=== PATIENT | female | born 1945 | race Two or more races ===

== ENCOUNTER 2018-08-09 15:49 | Inpatient (IN) | payer MEDICAID, MEDICARE ==
[~2018-08-09] VITALS: Ht 149.9 cm; Wt 54.0 kg
[2018-08-09] MEDS ORDERED: KETOROLAC 30MG/ML VIAL IV STA (16:26)
[2018-08-09] MEDS ORDERED: ONDANSETRON HCL 4MG/2ML INJ IV STA (16:26)
[2018-08-09] MEDS ORDERED: SODIUM CHLORIDE 0.9% 1,000 ML IV ONE (16:26)
[2018-08-09] MEDS ORDERED: ASPIRIN 81MG TABLET PO ONE (16:30)
[2018-08-09 17:56] LABS: BASOPHILS % 0.8 % (0.0-2.0); EOSINOPHILS % 1.1 % (0.0-5.0); HEMATOCRIT. 37.5 % (36.0-48.0); HEMOGLOBIN. 12.3 g/dL (12.0-16.0); MEAN CORPUSCULAR HEMOGLOBIN 31.8 pg (28.0-32.0); MEAN CORPUSCULAR VOLUME 97.2 fL (81.0-99.0); MONOCYTES % 12.7 % (2.0-8.0); NEUTROPHILS % 53.4 % (40.0-76.0); PLATELET 152 x1000/uL (130-400); RED BLOOD CELL COUNT 3.86 mill/uL (4.2-5.4); RED CELL DISTRIBUTION WIDTH 14.3 % (11.6-14.6)
[2018-08-09 17:58] LABS: CHLORIDE 106 mEq/L (98-107)
[2018-08-09 18:00] LABS: INR 1.1; PROTHROMBIN TIME 10.9 sec (9.1-11.1)
[2018-08-09 18:40] LABS: CLARITY URINE CLOUDY (CLEAR); COLOR URINE YELLOW (YELLOW); KETONES URINE 1+ (NEGATIVE); LEUKOCYTE ESTERASE URINE 1+ (NEGATIVE); NITRITE URINE NEGATIVE (NEGATIVE); OCCULT BLOOD URINE NEGATIVE (NEGATIVE); PH URINE 6.5 (4.5-8.0); PROTEIN URINE TRACE (NEGATIVE); UROBILINOGEN URINE 0.2 E.U./dL (0.2-1.0)
[2018-08-09] MEDS ORDERED: CEFTRIAXONE 1 G PREMIX 50 ML IV ONE (18:45)
[2018-08-09] MEDS ORDERED: POTASSIUM CHLORIDE 20MEQ TABLET SR PO ONE (18:45)
[2018-08-09] MEDS ORDERED: MORPHINE SULFATE 2 MG/ML CPJ (NOT FOR IM USE) IV ONE (19:00)
[2018-08-09] MEDS ORDERED: IPRATROPIUM/ALBUTEROL 0.5-3(2.5)MG/3ML NEB INH PRN (19:15)
[2018-08-09] MEDS ORDERED: DOCUSATE SODIUM 100MG CAPSULE PO PRN (19:15)
[2018-08-09] MEDS ORDERED: ONDANSETRON HCL 4MG/2ML INJ IV PRN (19:15)
[2018-08-09] MEDS ORDERED: ACETAMINOPHEN 325MG TABLET PO PRN (19:15)
[2018-08-09] MEDS ORDERED: CLONIDINE 0.1MG TABLET PO PRN (19:15)
[2018-08-09] MEDS ORDERED: MAGNESIUM/ALUMINUM HYDROXIDE/SIMETHICONE 30ML UDC PO PRN (19:15)
[2018-08-09 21:30] VITALS: BP 168/93
[2018-08-09 22:00] VITALS: BP 138/68
[2018-08-09 22:32] VITALS: BP 168/93
[2018-08-10] VITALS: BP 123/77
[2018-08-10 00:14] LABS: CHLORIDE 108 mEq/L (98-107)
[2018-08-10 00:24] LABS: CREATINE KINASE 88 IU/L (26-192)
[2018-08-10 04:00] VITALS: BP 144/90
[2018-08-10] MEDS: HYDROCODONE/ACETAMINOPHEN 5/325MG TABLET PO PRN ×3 (06:09→21:00)
[2018-08-10 07:20] LABS: BASOPHILS % 1.4 % (0.0-2.0); EOSINOPHILS % 2.9 % (0.0-5.0); HEMATOCRIT. 35.2 % (36.0-48.0); HEMOGLOBIN. 11.4 g/dL (12.0-16.0); LYMPHOCYTES % 46.1 % (20.0-50.0); MEAN CORPUSCULAR HEMOGLOBIN 31.6 pg (28.0-32.0); MEAN CORPUSCULAR VOLUME 97.4 fL (81.0-99.0); MEAN PLATELET VOLUME 11.7 fl (7.4-10.4); MONOCYTES % 14.5 % (2.0-8.0); NEUTROPHILS % 35.1 % (40.0-76.0); PLATELET 140 x1000/uL (130-400); RED BLOOD CELL COUNT 3.62 mill/uL (4.2-5.4); RED CELL DISTRIBUTION WIDTH 14.3 % (11.6-14.6)
[2018-08-10 08:14] LABS: LDL CHOLESTEROL 38 mg/dL (5-100)
[2018-08-10 08:16] LABS: CREATINE KINASE 86 IU/L (26-192); HDL CHOLESTEROL 52 mg/dL (40-59)
[2018-08-10 08:19] LABS: CREATINE KINASE MB FRACTION < 1.0 ng/mL (0.5-3.6)
[2018-08-10] MEDS: ASPIRIN 81MG EC TABLET PO SCH (09:02)
[2018-08-10 12:00] VITALS: BP 152/91
[2018-08-10] MEDS ORDERED: NICOTINE 21MG PATCH TD SCH (15:00)
[2018-08-10 16:00] VITALS: BP 173/101
[2018-08-10] MEDS ORDERED: BISACODYL 10MG SUPP PR SCH (16:45)
[2018-08-10] MEDS: DOCUSATE SODIUM 250MG CAPSULE PO SCH (16:59)
[2018-08-10] MEDS: NICOTINE 14MG PATCH TD SCH (17:00)
[2018-08-10] MEDS: CEFTRIAXONE 1 G PREMIX 50 ML IV SCH (17:00)
[2018-08-10] MEDS ORDERED: HYDR-4005 PO (18:58)
[2018-08-10] MEDS ORDERED: NAPR-677 PO (18:58)
[2018-08-10] MEDS ORDERED: S350 PO (18:58)
[2018-08-10 20:00] VITALS: BP 144/77
[2018-08-10] MEDS ORDERED: SENNOSIDES/DOCUSATE SOD 8.6/50MG TABLET PO SCH (21:00)
[2018-08-10] MEDS: DILTIAZEM HCL 30MG TABLET PO SCH (21:00)
[2018-08-10] MEDS ORDERED: CEFTRIAXONE 1 G PREMIX 50 ML IV SCH (21:00)
[2018-08-10] MEDS: ENOXAPARIN 40MG/0.4ML SYR SUBCUT SCH ×2 (21:01)
[2018-08-11] VITALS (7 sets, daily range): BP systolic 135–159; BP diastolic 76–91
[2018-08-11] MEDS: DILTIAZEM HCL 30MG TABLET PO SCH (05:05)
[2018-08-11] MEDS: HYDROCODONE/ACETAMINOPHEN 5/325MG TABLET PO PRN ×2 (05:05→09:12)
[2018-08-11] MEDS: DOCUSATE SODIUM 250MG CAPSULE PO SCH (08:27)
[2018-08-11] MEDS: NICOTINE 14MG PATCH TD SCH (08:27)
[2018-08-11] MEDS: ASPIRIN 81MG EC TABLET PO SCH (08:27)
[2018-08-11 10:43] LABS: HEMATOCRIT. 36.2 % (36.0-48.0); HEMOGLOBIN. 11.7 g/dL (12.0-16.0); MEAN CORPUSCULAR HEMOGLOBIN 31.6 pg (28.0-32.0); MEAN CORPUSCULAR VOLUME 97.8 fL (81.0-99.0); MEAN PLATELET VOLUME 10.2 fl (7.4-10.4); PLATELET 134 x1000/uL (130-400); RED CELL DISTRIBUTION WIDTH 13.9 % (11.6-14.6)
[2018-08-11] MEDS ORDERED: DILTIAZEM HCL 120MG CAPSULE CD 24HR PO SCH (11:00)
[2018-08-11 11:12] LABS: CHLORIDE 106 mEq/L (98-107)
[2018-08-11] MEDS ORDERED: HYDROCODONE/APAP 7.5/325MG 1 TAB TABLET PO PRN (11:15)
[2018-08-11 11:18] LABS: PHOSPHORUS 3.2 mg/dL (2.5-4.9)
[2018-08-11] MEDS ORDERED: ASPI-1158 PO (14:17)
[2018-08-11] MEDS ORDERED: DILT120C88 PO (14:17)
[2018-08-11] MEDS ORDERED: NICO-681 TD (14:17)
[2018-08-11 16:41] LABS: PLATELET ESTIMATE NORMAL
[2018-08-11] MEDS: CEFTRIAXONE 1 G PREMIX 50 ML IV SCH (17:09)
== END 2018-08-11 17:50 | disposition home or self-care (01) | DRG 872 ==
LOC: EDBEDREQ 16:32 → EDBEDREQTM 16:32 → ER 16:39 → 7WST 18:50 → EDBEDREQ 18:54 → ENRESERV 19:56
PROVIDERS: ADMIT Internal Medicine; ATTEND Internal Medicine
DX: A41.9 Sepsis, unspecified organism (principal); C41.9 Malignant neoplasm of bone and articular cartilage, unspecified; I69.354 Hemiplegia and hemiparesis following cerebral infarction affecting left non-dominant side; N39.0 Urinary tract infection, site not specified; C78.01 Secondary malignant neoplasm of right lung; K59.00 Constipation, unspecified; D64.9 Anemia, unspecified; E87.6 Hypokalemia; J44.9 Chronic obstructive pulmonary disease, unspecified; E11.9 Type 2 diabetes mellitus without complications; F17.210 Nicotine dependence, cigarettes, uncomplicated; I10 Essential (primary) hypertension; R07.81 Pleurodynia; I25.10 Atherosclerotic heart disease of native coronary artery without angina pectoris; Z87.01 Personal history of pneumonia (recurrent); I25.2 Old myocardial infarction; Z79.84 Long term (current) use of oral hypoglycemic drugs; Z92.21 Personal history of antineoplastic chemotherapy
CPT/HCPCS: 36415; 71045; 71250; 74176; 80048; 80053; 80061; 81003; 82550; 82553; 83690; 83735; 84100; 84145; 84443; 84484; 85025; 85610; 87040; 93005; 93306; 93970; 96374; 96375; 97162; 99285; J0696; J1650; J1885; J2270; J2405; J7030

== ENCOUNTER 2021-10-29 13:34 | Inpatient (IN) | payer MEDICARE, MEDICAID ==
[~2021-10-29] VITALS: Ht 149.9 cm; Wt 65.5 kg
[~2021-10-29 13:34] MED LIST: ASPI-1406 PO; CARI350T28 PO; DILT120C88 PO; HYDR-4005 PO; NAPR-677 PO; NICO-681 TD
[2021-10-29] MEDS ORDERED: SODIUM CHLORIDE 0.9% 1000ML BAG (SEPSIS BOLUS) IV ONE (14:45)
[2021-10-29 14:55] LABS: HEMATOCRIT. 30.9 % (36.0-48.0); HEMOGLOBIN. 9.4 g/dL (12.0-16.0); MEAN CORPUSCULAR HEMOGLOBIN 24.5 pg (28.0-32.0); MEAN CORPUSCULAR VOLUME 80.3 fL (81.0-99.0); MEAN PLATELET VOLUME 9.2 fl (7.4-10.4); PLATELET 207 x1000/uL (130-400); RED BLOOD CELL COUNT 3.85 mill/uL (4.2-5.4); RED CELL DISTRIBUTION WIDTH 19.3 % (11.6-14.6)
[2021-10-29 15:04] LABS: CHLORIDE 113 mEq/L (98-107)
[2021-10-29 15:50] LABS: PLATELET ESTIMATE NORMAL
[2021-10-29 17:25] LABS: CLARITY URINE CLEAR (CLEAR); COLOR URINE YELLOW (YELLOW); KETONES URINE NEGATIVE (NEGATIVE); LEUKOCYTE ESTERASE URINE TRACE (NEGATIVE); NITRITE URINE NEGATIVE (NEGATIVE); OCCULT BLOOD URINE NEGATIVE (NEGATIVE); PROTEIN URINE TRACE (NEGATIVE)
[2021-10-29] MEDS ORDERED: HYDROCODONE/ACETAMINOPHEN 10/325MG TABLET PO ONE ×2 (17:30→21:45)
[2021-10-29] MEDS ORDERED: IOHEXOL-350 100 ML BOTTLE ONE (21:29)
[2021-10-29] MEDS ORDERED: NITROFURANTOIN 100MG M/M CAPSULE PO ONE (22:30)
[2021-10-29] MEDS ORDERED: ENOXAPARIN 60MG/0.6ML SYR SUBCUT ONE (23:15)
[2021-10-30] VITALS (20 sets, daily range): BP systolic 69–158; BP diastolic 41–96
[2021-10-30] MEDS ORDERED: IOHEXOL-350 100 ML BOTTLE ONE (00:56)
[2021-10-30] MEDS ORDERED: PREG75CA MT (03:52)
[2021-10-30] MEDS ORDERED: FOLI-43 MT (03:52)
[2021-10-30] MEDS ORDERED: INFLUENZA VACCINE 05/PF 0.5 ML SYRINGE IM ONE (04:30)
[2021-10-30] MEDS ORDERED: PNEUMOCOCCAL 23-VAL P-SAC VAC 0.5 ML IM ONE (04:30)
[2021-10-30] MEDS ORDERED: IPRATROPIUM/ALBUTEROL 0.5-3(2.5)MG/3ML NEB HHN PRN (05:15)
[2021-10-30] MEDS ORDERED: PIPERACILLIN/TAZOBACTAM 3.375 G in DEXTROSE 5% WATER 50 ML IV SCH (06:00)
[2021-10-30 06:27] LABS: CHLORIDE 114 mEq/L (98-107)
[2021-10-30] MEDS ORDERED: VANCOMYCIN 1250MG in DEXTROSE 5% WATER 250ML IV NR ×2 (06:30→07:00)
[2021-10-30 06:34] LABS: BASOPHILS % 0.7 % (0.0-2.0); EOSINOPHILS % 0.6 % (0.0-5.0); HEMATOCRIT. 27.7 % (36.0-48.0); HEMOGLOBIN. 8.5 g/dL (12.0-16.0); LYMPHOCYTES % 11.2 % (20.0-50.0); MEAN CORPUSCULAR HEMOGLOBIN 24.9 pg (28.0-32.0); MEAN CORPUSCULAR VOLUME 81.1 fL (81.0-99.0); MEAN PLATELET VOLUME 9.7 fl (7.4-10.4); MONOCYTES % 10.6 % (2.0-8.0); NEUTROPHILS % 76.9 % (40.0-76.0); PLATELET 185 x1000/uL (130-400); RED BLOOD CELL COUNT 3.41 mill/uL (4.2-5.4); RED CELL DISTRIBUTION WIDTH 19.1 % (11.6-14.6)
[2021-10-30] MEDS: ASPIRIN 81MG TABLET PO SCH (08:18)
[2021-10-30] MEDS: FOLIC ACID/VITAMIN B COMP W-C TABLET PO SCH (08:19)
[2021-10-30] MEDS: PREGABALIN 75MG CAPSULE PO SCH ×2 (08:19→22:46)
[2021-10-30] MEDS ORDERED: LEVOFLOXACIN 500MG PREMIX 100 ML IV SCH (09:00)
[2021-10-30] MEDS ORDERED: LIDOCAINE HCL 1% 20ML VIAL (Pyxis) INJ ONE (11:02)
[2021-10-30] MEDS ORDERED: LIDOCAINE HCL 4% (40MG/ML) SOLN 50ML TOP NR (12:00)
[2021-10-30] MEDS: HYDROCODONE/ACETAMINOPHEN 10/325MG TABLET PO PRN (13:29)
[2021-10-30] MEDS ORDERED: ONDANSETRON HCL 4MG/2ML INJ IV PRN (15:45)
[2021-10-30] MEDS ORDERED: METOPROLOL TARTRATE 5MG/5ML VIAL IV NR (16:30)
[2021-10-30] MEDS ORDERED: ACETAMINOPHEN 325MG TABLET PO NR (19:15)
[2021-10-30] MEDS: DEXT 5%/0.45% NACL 1000ML 1,000 ML IV SCH (19:17)
[2021-10-30] MEDS ORDERED: NOREPINEPHRINE 32 MG in DEXT 5% WATER 218 ML IV PRN (21:15)
[2021-10-30] MEDS: ENOXAPARIN 40MG/0.4ML SYR SUBCUT SCH (22:45)
[2021-10-31] VITALS (31 sets, daily range): BP systolic 60–163; BP diastolic 26–88
[2021-10-31] MEDS: HYDROCODONE/ACETAMINOPHEN 10/325MG TABLET PO PRN ×2 (02:52→19:32)
[2021-10-31 05:55] LABS: HEMATOCRIT. 24.5 % (36.0-48.0); HEMOGLOBIN. 7.4 g/dL (12.0-16.0); MEAN CORPUSCULAR HEMOGLOBIN 24.2 pg (28.0-32.0); MEAN CORPUSCULAR VOLUME 79.9 fL (81.0-99.0); MEAN PLATELET VOLUME 10.3 fl (7.4-10.4); PLATELET 130 x1000/uL (130-400); RED BLOOD CELL COUNT 3.07 mill/uL (4.2-5.4); RED CELL DISTRIBUTION WIDTH 18.8 % (11.6-14.6)
[2021-10-31] MEDS: DEXT 5%/0.45% NACL 1000ML 1,000 ML IV SCH ×2 (06:19→15:26)
[2021-10-31] MEDS: FOLIC ACID/VITAMIN B COMP W-C TABLET PO SCH (08:43)
[2021-10-31] MEDS: PREGABALIN 75MG CAPSULE PO SCH ×2 (08:43→20:49)
[2021-10-31] MEDS: ASPIRIN 81MG TABLET PO SCH (08:43)
[2021-10-31] MEDS: VANCOMYCIN 750 MG PREMIX 150 ML IV SCH (08:43)
[2021-10-31] MEDS: LEVOFLOXACIN 250MG PREMIX 50 ML IV SCH (08:43)
[2021-10-31 09:35] LABS: PLATELET ESTIMATE NORMAL
[2021-10-31] MEDS: ENOXAPARIN 40MG/0.4ML SYR SUBCUT SCH (20:49)
[2021-11-01] VITALS (12 sets, daily range): BP systolic 126–166; BP diastolic 73–97
[2021-11-01] MEDS: DEXT 5%/0.45% NACL 1000ML 1,000 ML IV SCH ×3 (01:38→20:54)
[2021-11-01 06:42] LABS: CHLORIDE 112 mEq/L (98-107)
[2021-11-01 07:02] LABS: HEMATOCRIT. 26.7 % (36.0-48.0); HEMOGLOBIN. 8.3 g/dL (12.0-16.0); MEAN CORPUSCULAR HEMOGLOBIN 24.5 pg (28.0-32.0); MEAN CORPUSCULAR VOLUME 78.7 fL (81.0-99.0); MEAN PLATELET VOLUME 10.5 fl (7.4-10.4); PLATELET 138 x1000/uL (130-400); RED BLOOD CELL COUNT 3.39 mill/uL (4.2-5.4); RED CELL DISTRIBUTION WIDTH 19.1 % (11.6-14.6)
[2021-11-01] MEDS: ASPIRIN 81MG TABLET PO SCH (08:07)
[2021-11-01] MEDS: LEVOFLOXACIN 250MG PREMIX 50 ML IV SCH (08:07)
[2021-11-01] MEDS: FOLIC ACID/VITAMIN B COMP W-C TABLET PO SCH (08:07)
[2021-11-01] MEDS: PREGABALIN 75MG CAPSULE PO SCH ×2 (08:07→20:54)
[2021-11-01] MEDS: HYDROCODONE/ACETAMINOPHEN 10/325MG TABLET PO PRN ×2 (08:11→20:56)
[2021-11-01 09:26] LABS: PLATELET ESTIMATE NORMAL
[2021-11-01] MEDS: VANCOMYCIN 750 MG PREMIX 150 ML IV SCH (09:49)
[2021-11-01] MEDS ORDERED: LACTULOSE 20G/30ML UDC PO PRN (12:00)
[2021-11-01] MEDS ORDERED: GUAIFENESIN-DM 200MG-20MG/10ML UDC PO PRN (12:00)
[2021-11-01] MEDS ORDERED: LACTULOSE 20G/30ML UDC PO NR (12:00)
[2021-11-01] MEDS ORDERED: BISACODYL 5MG TABLET PO PRN (12:00)
[2021-11-01] MEDS ORDERED: NALOXONE HCL 0.4MG/ML VIAL IV PRN (12:15)
[2021-11-01] MEDS: ENOXAPARIN 40MG/0.4ML SYR SUBCUT SCH (20:54)
[2021-11-02] VITALS (9 sets, daily range): BP systolic 124–155; BP diastolic 76–94
[2021-11-02] MEDS: DEXT 5%/0.45% NACL 1000ML 1,000 ML IV SCH (07:15)
[2021-11-02 07:59] LABS: HEMATOCRIT. 27.3 % (36.0-48.0); HEMOGLOBIN. 8.4 g/dL (12.0-16.0); MEAN CORPUSCULAR HEMOGLOBIN 24.3 pg (28.0-32.0); MEAN CORPUSCULAR VOLUME 78.7 fL (81.0-99.0); MEAN PLATELET VOLUME 10.6 fl (7.4-10.4); PLATELET 145 x1000/uL (130-400); RED BLOOD CELL COUNT 3.46 mill/uL (4.2-5.4); RED CELL DISTRIBUTION WIDTH 19.9 % (11.6-14.6)
[2021-11-02 08:07] LABS: CHLORIDE 109 mEq/L (98-107)
[2021-11-02] MEDS: FOLIC ACID/VITAMIN B COMP W-C TABLET PO SCH (08:38)
[2021-11-02] MEDS: ASPIRIN 81MG TABLET PO SCH (08:38)
[2021-11-02] MEDS: LEVOFLOXACIN 250MG PREMIX 50 ML IV SCH (08:38)
[2021-11-02] MEDS: PREGABALIN 75MG CAPSULE PO SCH (08:38)
[2021-11-02] MEDS: VANCOMYCIN 750 MG PREMIX 150 ML IV SCH (09:45)
[2021-11-02] MEDS: HYDROCODONE/ACETAMINOPHEN 10/325MG TABLET PO PRN (10:36)
[2021-11-02 14:42] LABS: PLATELET ESTIMATE NORMAL
[2021-11-02] MEDS ORDERED: VANCOMYCIN 750 MG PREMIX 150 ML IV SCH (21:00)
== END 2021-11-02 14:30 | disposition home health service (06) | DRG 871 ==
LOC: ER 13:34 → EDBEDREQ 22:09 → EDBEDREQSVC 22:09 → EDBEDREQTM 22:09 → EDBEDREQSVC 23:06 → EDBEDREQTM 23:06 → ENRESERV 10-30 01:42 → 3WST 10-30 03:53 → CVICU 10-30 21:05 → 3WST 10-31 15:47
PROVIDERS: ADMIT Internal Medicine; ATTEND Internal Medicine
DX: A41.89 Other specified sepsis (principal); R65.21 Severe sepsis with septic shock; J96.01 Acute respiratory failure with hypoxia; C34.90 Malignant neoplasm of unspecified part of unspecified bronchus or lung; E44.0 Moderate protein-calorie malnutrition; I69.354 Hemiplegia and hemiparesis following cerebral infarction affecting left non-dominant side; C78.7 Secondary malignant neoplasm of liver and intrahepatic bile duct; N39.0 Urinary tract infection, site not specified; E87.8 Other disorders of electrolyte and fluid balance, not elsewhere classified; K80.20 Calculus of gallbladder without cholecystitis without obstruction; J43.9 Emphysema, unspecified; G62.9 Polyneuropathy, unspecified; R74.01 Elevation of levels of liver transaminase levels; R91.1 Solitary pulmonary nodule; F17.210 Nicotine dependence, cigarettes, uncomplicated; Z20.822 Contact with and (suspected) exposure to COVID-19; D50.9 Iron deficiency anemia, unspecified; K59.00 Constipation, unspecified; Z88.0 Allergy status to penicillin; Z79.899 Other long term (current) drug therapy; Z79.82 Long term (current) use of aspirin; Z92.21 Personal history of antineoplastic chemotherapy; I25.2 Old myocardial infarction; Z68.29 Body mass index [BMI] 29.0-29.9, adult
CPT/HCPCS: 36415; 71045; 71250; 71275; 74176; 76700; 80048; 80053; 80202; 81003; 83605; 83880; 84145; 84484; 85025; 85379; 87186; 87426; 87804; 93005; 93970; 97162; 99285; J1650; J1956; J2405; J3370; J3490; J7030; J7060; Q9967